=== PATIENT | male | born 1965 | race Caucasian/White ===

== ENCOUNTER 2022-09-23 13:36 | Inpatient (IN) ==
[2022-09-23] MEDS ORDERED: IOPAMIDOL 100 ML BOTTLE IV ONE (13:37)
[2022-09-23 14:18] LABS: POC Calcium, Ionized 1.11 (1.16-1.32); POC Creatinine 1.1 (0.6-1.2); POC Potassium 3.9 (3.3-5.1)
--- NOTE | 2022-09-23 14:32 | Emergency Department Note ---
HPI General Chief complaint: Abdominal Pain Stated complaint: Abdominal Pain Time Seen by Provider: 09/23/22 13:46 Source: patient Mode of arrival: wheelchair Limitations: no limitations History of Present Illness HPI Narrative: Narrative: This 57-year-old gentleman presents complaining of intermittent abdominal pain in the bilateral lower quadrants. He states it comes on fairly strongly the minute he eats and resolves spontaneously afterwards he cannot relate any other provocative or palliative factors. He also complains of a febrile feeling and diaphoresis he states he has had some nausea today but no vomiting denies any urinary tract symptoms. His last bowel movement was today and he states the pain was somewhat relieved by this he states this was a normal bowel movement without melena or hematochezia. Related Data Home Medications Medication Instructions Recorded Confirmed vvxlohfwu-MKX-YV-acetaminophen 30 ml PO QHS PRN Insomnia 09/23/22 09/23/22 6.25 mg-30 [id number]/15mL oral liqd ibuprofen 400 mg tablet 400 mg PO Q6H PRN Pain 09/23/22 09/23/22 Allergies Allergy/AdvReac Type Severity Reaction Status Date / Time No Known Drug Allergies Allergy Verified 09/23/22 13:55 Review of Systems ROS ROS Narrative: Narrative: All systems ED: reviewed and negative except as stated. PFS Narrative Patient History Narrative: Narrative: Medical/Surgical/Family History All Active Problems (Updated 09/23/22 @ 18:26 by Oliver Kramer MD) Diverticulitis (Acute) Acute appendicitis (Acute) Diverticulitis (Acute) Left knee sprain (Acute) Chest pain (Acute) Medical History Left knee sprain Social History Smoking Status: Never smoker Exam Narrative Narrative: Narrative: General: Alert and oriented x3 no acute distress no pain behavior. Skin: Well perfused and hydrated without exanthem. Abdomen: Decreased bowel sounds tender in the suprapubic and left lower quadrant with positive direct rebound tenderness in the right side no distention no rigidity no ascites masses or hepatosplenomegaly. General Limitations: no limitations Course Vital Signs Vital signs: Vital Signs Temperature 98 F 09/23/22 13:47 Pulse Rate 94 H 09/23/22 13:47 Respiratory Rate 16 09/23/22 13:47 Blood Pressure 129/80 09/23/22 13:47 Pulse Oximetry (%) 94 09/23/22 13:47 Oxygen Delivery Method Room Air 09/23/22 13:47 Temperature 98.4 F 09/24/22 04:00 Pulse Rate 90 09/24/22 04:00 Respiratory Rate 16 09/24/22 04:00 Blood Pressure 140/75 09/24/22 04:00 Pulse Oximetry (%) 96 09/24/22 04:00 Oxygen Delivery Method Room Air 09/24/22 04:00 [facility] MDM Narrative Medical decision making narrative: Narrative: Patient's white count was 16.9 thousand with a D-dimer 0.78 (PERC score is 0.0 for a 1.3% chance of PE), and his CT scan showed1. Proximal sigmoid diverticulitis. No focal abscess or free air 2. 5 mm appendicolith. Subtle periappendiceal inflammatory changes consistent with mild appendicitis 3. Multiple noncalcified pulmonary nodules. 3-[address] follow-up recommended. 4. Splenomegaly 5. Bilateral L5 spondylolysis and grade 2 L5-S[address] Felix was called and asked to see the patient - he agreed to. Sepsis Sepsis Identified: No Lab Data 09/24/22 05:15 09/24/22 05:15 Labs: Lab Results 09/23/22 09/23/22 09/23/22 Range/Units 14:13 14:31 14:31 WBC 16.9 H (4.5-11.0) K/mcL RBC 5.80 (4.63-6.08) M/mcL Hgb 15.9 (13.7-17.5) g/dL Hct 48.1 (40.1-51.0) % POC Hct 50.0 (41-55) MCV 82.9 (80.0-100.0) fL MCH 27.4 (26.0-34.0) pg MCHC 33.1 (31.0-36.0) g/dL RDW 13.1 (11.5-14.5) % Plt Count 227 (140-440) K/mcL MPV 11.8 (8.8-12.5) fL Immature Gran % (Auto) 0.6 H (0.0-0.5) % Neut % (Auto) 84.5 H (38.0-78.0) % Lymph % (Auto) 7.3 L (15.5-49.0) % [place] % (Auto) 6.6 (1.0-12.0) % Eos % (Auto) 0.7 (0.0-7.0) % Baso % (Auto) 0.3 (0.0-2.0) % Lymph # (Auto) 1.23 L (1.50-4.80) K/mcL [place] # (Auto) 1.11 H (0.10-0.90) K/mcL Eos # (Auto) 0.11 (0.00-0.70) K/mcL Baso # (Auto) 0.05 (0.00-0.30) K/mcL Immature Gran # 0.10 H (0.00-0.05) K/mcl Absolute Neutrophils 14.26 H (1.80-8.00) K/mcL POC Sodium 138 (133-145) Sodium 137 (133-145) mmol/L POC Potassium 3.9 (3.3-5.1) Potassium 3.9 (3.3-5.1) mmol/L POC Chloride 102 (96-108) Chloride 102 (96-108) mmol/L Carbon Dioxide 24 (22-30) mmol/L POC Total CO2 25.0 (22-30) Anion Gap 11.0 (8.0-16.0) POC BUN 10 (6-20) BUN 10 (6-20) mg/dL Creatinine 1.2 (0.7-1.2) mg/dL POC Creatinine 1.1 (0.6-1.2) GFR Calculation 66 Glucose 118 H (70-105) mg/dL POC Glucose 122 H (70-105) Calcium 9.0 (8.6-10.4) mg/dL POC WB Ioniz Calcium 1.11 L (1.16-1.32) Total Bilirubin 1.3 H (0.1-1.0) mg/dL AST 20 (<40) U/L ALT 28 (<40) U/L Alkaline Phosphatase 102 (39-117) U/L Total Protein 7.4 (5.9-8.4) gm/dL Albumin 4.3 (3.2-5.2) gm/dL Globulin 3.1 (2.2-3.7) gm/dL Albumin/Globulin Ratio 1.4 (1.0-2.3) Lipase 14 (7-60) U/L Discharge Plan Patient/Caregiver Discharge Instructions Pt seen by ENERGY CONSULTANT/PA only: No Clinical Impression: Diverticulitis, Acute appendicitis Patient Disposition: Still a Patient Discharge Date/Time: 09/23/22 19:10
[2022-09-23 15:08] LABS: Basophils # (Auto) 0.05 K/mcL (0.00-0.30); Basophils % (Auto) 0.3 % (0.0-2.0); Eosinophils # (Auto) 0.11 K/mcL (0.00-0.70); Eosinophils % (Auto) 0.7 % (0.0-7.0); Hematocrit 48.1 % (40.1-51.0); Hemoglobin 15.9 g/dL (13.7-17.5); Lymphocytes # (Auto) 1.23 K/mcL (1.50-4.80); Lymphocytes % (Auto) 7.3 % (15.5-49.0); Mean Cell Volume 82.9 fL (80.0-100.0); Mean Corpuscular HGB Conc 33.1 g/dL (31.0-36.0); Mean Platelet Volume 11.8 fL (8.8-12.5); Monocytes # (Auto) 1.11 K/mcL (0.10-0.90); Monocytes % (Auto) 6.6 % (1.0-12.0); Neutrophils % (Auto) 84.5 % (38.0-78.0); Platelet Count 227 K/mcL (140-440); Red Cell Distribution Width 13.1 % (11.5-14.5); WBC 16.9 K/mcL (4.5-11.0)
[2022-09-23] MEDS ORDERED: metroNIDAZOLE 500 MG/100 ML BAG IV SCH (15:30)
[2022-09-23] MEDS ORDERED: PIPERACILLIN SODIUM/TAZOBACTAM 4.5 GM in DEXTROSE 5% IN WATER 50 ML IV ONE (15:30)
[2022-09-23 15:31] LABS: ALT/SGPT 28 U/L (<40); AST/SGOT 20 U/L (<40); Albumin 4.3 gm/dL (3.2-5.2); Albumin/Globulin Ratio 1.4 (1.0-2.3); Alkaline Phosphatase 102 U/L (39-117); Bilirubin,Total 1.3 mg/dL (0.1-1.0); Blood Urea Nitrogen 10 mg/dL (6-20); Carbon Dioxide 24 mmol/L (22-30); Chloride 102 mmol/L (96-108); Globulin 3.1 gm/dL (2.2-3.7); Glomerular Filtration Rate 66; Glucose 118 mg/dL (70-105)
--- NOTE | 2022-09-23 16:00 | Cat Scan Report ---
INDICATION: pain Morales LQs COMPARISON: None. TECHNIQUE: Axial images were obtained through the abdomen and pelvis. Sagittally and coronally reformatted images. 80 mL Isovue 370 injected intravenously. Oral contrast material was administered FINDINGS: Lung bases:There are noncalcified pulmonary parenchymal nodules: - 5 mm right middle lobe, image 1 - 4 mm right middle lobe, image 5 - 7 mm right lower lobe, image 22 Fleischner Society recommendations: 3-[address] follow-up Lung bases are otherwise negative. Liver:Negative. No focal intrahepatic mass. No focal abnormality. Liver contour is smooth. No evidence for cirrhosis Gallbladder, bilary:No calcified gallstones. No gallbladder wall thickening. No dilated intra or extrahepatic bile ducts. Spleen:There is splenomegaly. Spleen measures 16 x 11 x 4 cm. Normal patent splenic and portal veins Pancreas:No pancreatic mass. No peripancreatic abnormality Adrenal glands:Negative Kidneys,ureters,bladder:No solid renal mass. No hydronephrosis. No obstructing or nonobstructing calculi. No hydroureter. No ureteral calculus. No bladder stone. No detectable bladder mass. Gastrointestinal:Prominent sigmoid diverticulosis. There is relatively severe proximal sigmoid diverticulitis. There is colonic wall thickening and extensive pericolonic inflammatory change. There is no discrete abscess. No pneumoperitoneum. No significant free intraperitoneal fluid Negative small bowel. No mechanical small bowel obstruction. No bowel wall thickening. No focal abnormality. Negative stomach and duodenum. No focal abnormality. Appendix: The appendix is abnormal. There is a 5 mm proximal appendiceal appendicolith. There is minimal periappendiceal inflammatory change. Vascular:Negative abdominal aorta. Superior mesenteric artery and celiac trunk are normal. Normal opacification of the inferior mesenteric artery Lymphatic:No retroperitoneal or mesenteric adenopathy Mesentery, peritoneum: No free intraperitoneal fluid. No mesenteric or retroperitoneal mass. No intra-abdominal abscess. Reproductive:Prostate is not significantly enlarged Musculoskeletal:Severe degenerative disc disease at L5-S1. There is bilateral L5 spondylolysis and grade 2 spondylolisthesis. No abdominal wall or inguinal hernia IMPRESSION: 1. Proximal sigmoid diverticulitis. No focal abscess or free air 2. 5 mm appendicolith. Subtle periappendiceal inflammatory change consistent with mild appendicitis 3. Multiple noncalcified pulmonary nodules. 3-[address] follow-up recommended 4. Splenomegaly 5. Bilateral L5 spondylolysis and grade 2 L5-S1 spondylolisthesis The exam was performed using radiation dose optimization techniques including, but not limited to, automated exposure control, adjustment of the mA and/or kV according to patient size and use of iterative reconstruction technique. Interpreted and Authenticated by: Austen Delcid 09/23/22
[2022-09-23] MEDS ORDERED: ONDANSETRON 4 MG/2 ML VIAL IV PRN (17:38)
--- NOTE | 2022-09-23 17:50 | General Surg History&Physical ---
HPI History of Present Illness Patient information: Note initiated : 09/23/22 at 5:45 pm Service Date, if different from initiated Date: [] Patient: Joe Calvert 57 y/o M admitted on for Abdominal Pain. Chief Complaint: [] Chief complaint: Abdominal pain History of present illness: Mr. Calvert is a 57 year old M who presents with 2 days complaint of abdominal pain, started left lower quadrant and then worked towards the midline. He has never experienced pain like this before. He has no fevers chills, he has mild nausea without emesis. He has not had prior colorectal screening. He is otherwise healthy. CT scan done in the emergency room is read as consistent with sigmoid diverticulitis without evidence of an abscess. Patient also has a white count of 16,000. Review of Systems Review of systems: All systems reviewed, negative other than above PFSH PFSH All Active Problems (Updated 09/23/22 @ 17:47 by Ladarius Felix MD) Diverticulitis (Acute) Left knee sprain (Acute) Chest pain (Acute) Medical History (Updated 09/23/22 @ 17:47 by Ladarius Felix MD) Left knee sprain Social History smoking status: Never smoker MEDS/ALLERGIES Home Medications and Allergies Home Medications Medication Instructions Recorded Confirmed Type ttgaonqnu-FXR-RT-acetaminophen 30 ml PO QHS PRN Insomnia 09/23/22 09/23/22 History 6.25 mg-30 [id number]/15mL oral liqd ibuprofen 400 mg tablet 400 mg PO Q6H PRN Pain 09/23/22 09/23/22 History Allergies Allergy/AdvReac Type Severity Reaction Status Date / Time No Known Drug Allergies Allergy Verified 09/23/22 13:55 Physical Examination Vital Signs Vital signs: Temp Pulse Resp BP Pulse Ox O2 Del Method 98 F 94 H 16 129/80 94 Room Air 09/23/22 13:47 09/23/22 13:47 09/23/22 13:47 09/23/22 13:47 09/23/22 13:47 09/23/22 13:47 General physical appearance General physical exam: well developed, well nourished and no distress Eyes Eye exam: PERRL and normal ocular movement ENT ENT exam: normal pinna, normal nares, normal mucosa, no hearing loss and no congestion Head Head exam IM: Present atraumatic and normocephalic Neck Neck exam: no masses, no bruits, trachea midline, no lymphadenopathy and no venous distension Cardiovascular Cardiovascular exam IM: Present normal rate and rhythm Respiratory Respiratory exam: normal expansion, normal respiratory effort, clear to percussion and clear to auscultation Abdomen Abdomen: Present soft, tender (Mild tender to palpation suprapubic) and bowel sounds Hernia: Present none Genitourinary Genitourinary (Male): Present normal penis with no external lesions Rectum Rectum: Present normal sphincter tone, no hemorrhoids, no tenderness, no masses and no bleeding Integumentary Integumentary: Present no rash, no growths and no abnormal pigmentation Neurologic Neurologic: Present normal coordination and normal sensation Musculoskeletal Musculoskeletal: Present normal gait and normal posture Psychiatric Psychiatric: Present oriented to time, oriented to person, oriented to place, speech is normal and memory intact Results Labs 09/23/22 14:31 09/23/22 14:31 Labs: Abnormal lab results 09/23/22 09/23/22 09/23/22 Range/Units 14:13 14:31 14:31 WBC 16.9 H (4.5-11.0) K/mcL Immature Gran % (Auto) 0.6 H (0.0-0.5) % Neut % (Auto) 84.5 H (38.0-78.0) % Lymph % (Auto) 7.3 L (15.5-49.0) % Lymph # (Auto) 1.23 L (1.50-4.80) K/mcL [place] # (Auto) 1.11 H (0.10-0.90) K/mcL Immature Gran # 0.10 H (0.00-0.05) K/mcl Absolute Neutrophils 14.26 H (1.80-8.00) K/mcL Glucose 118 H (70-105) mg/dL POC Glucose 122 H (70-105) POC WB Ioniz Calcium 1.11 L (1.16-1.32) Total Bilirubin 1.3 H (0.1-1.0) mg/dL Diabetes panel 09/23/22 Range/Units 14:31 Sodium 137 (133-145) mmol/L Potassium 3.9 (3.3-5.1) mmol/L Chloride 102 (96-108) mmol/L Carbon Dioxide 24 (22-30) mmol/L BUN 10 (6-20) mg/dL Creatinine 1.2 (0.7-1.2) mg/dL Glucose 118 H (70-105) mg/dL Calcium 9.0 (8.6-10.4) mg/dL AST 20 (<40) U/L ALT 28 (<40) U/L Alkaline Phosphatase 102 (39-117) U/L Total Protein 7.4 (5.9-8.4) gm/dL Albumin 4.3 (3.2-5.2) gm/dL Calcium panel 09/23/22 Range/Units 14:31 Calcium 9.0 (8.6-10.4) mg/dL Albumin 4.3 (3.2-5.2) gm/dL Pituitary panel 09/23/22 Range/Units 14:31 Sodium 137 (133-145) mmol/L Potassium 3.9 (3.3-5.1) mmol/L Chloride 102 (96-108) mmol/L Carbon Dioxide 24 (22-30) mmol/L BUN 10 (6-20) mg/dL Creatinine 1.2 (0.7-1.2) mg/dL Glucose 118 H (70-105) mg/dL Calcium 9.0 (8.6-10.4) mg/dL Adrenal panel 09/23/22 Range/Units 14:31 Sodium 137 (133-145) mmol/L Potassium 3.9 (3.3-5.1) mmol/L Chloride 102 (96-108) mmol/L Carbon Dioxide 24 (22-30) mmol/L BUN 10 (6-20) mg/dL Creatinine 1.2 (0.7-1.2) mg/dL Glucose 118 H (70-105) mg/dL Calcium 9.0 (8.6-10.4) mg/dL Total Bilirubin 1.3 H (0.1-1.0) mg/dL AST 20 (<40) U/L ALT 28 (<40) U/L Alkaline Phosphatase 102 (39-117) U/L Total Protein 7.4 (5.9-8.4) gm/dL Albumin 4.3 (3.2-5.2) gm/dL All other labs normal. Imaging CT scan - abdomen: image reviewed A/P Assessment and plan (1) Diverticulitis: Plan: This is a pleasant 57-year-old gentleman who presents with sigmoid diverticulitis. Long discussion with patient about treatment being in IV antibiotics, n.p.o. Plan: N.p.o., IV antibiotics. Status: Acute Time Spent With Patient Time: Total time spent is greater than 50% in coordination of care (as documented) at patient's floor/unit and/or counseling patient:
[2022-09-23] MEDS: LACTATED RINGERS 1,000 ML IV SCH (19:52)
[2022-09-23] MEDS: LEVOFLOXACIN 750 MG/150 ML BAG IV SCH (19:53)
[2022-09-23] MEDS: 0.9 % SODIUM CHLORIDE 10 ML SYRINGE IV SCH (20:50)
[2022-09-23] MEDS: HYDROmorphone 0.5 MG/0.5 ML SYRINGE IV PRN ×2 (20:50→22:44)
[2022-09-24] MEDS: metroNIDAZOLE 500 MG/100 ML BAG IV SCH ×3 (00:03→16:04)
[2022-09-24] MEDS: LACTATED RINGERS 1,000 ML IV SCH ×3 (01:58→13:08)
[2022-09-24] MEDS: HYDROmorphone 0.5 MG/0.5 ML SYRINGE IV PRN ×2 (02:26→05:10)
[2022-09-24] MEDS: 0.9 % SODIUM CHLORIDE 10 ML SYRINGE IV SCH ×3 (05:11→22:09)
[2022-09-24 06:09] LABS: Basophils # (Auto) 0.06 K/mcL (0.00-0.30); Basophils % (Auto) 0.5 % (0.0-2.0); Eosinophils # (Auto) 0.22 K/mcL (0.00-0.70); Eosinophils % (Auto) 1.8 % (0.0-7.0); Hematocrit 42.5 % (40.1-51.0); Hemoglobin 14.1 g/dL (13.7-17.5); Lymphocytes # (Auto) 1.96 K/mcL (1.50-4.80); Lymphocytes % (Auto) 15.7 % (15.5-49.0); Mean Cell Volume 83.3 fL (80.0-100.0); Mean Corpuscular HGB Conc 33.2 g/dL (31.0-36.0); Mean Platelet Volume 11.9 fL (8.8-12.5); Monocytes # (Auto) 0.97 K/mcL (0.10-0.90); Monocytes % (Auto) 7.8 % (1.0-12.0); Neutrophils % (Auto) 73.8 % (38.0-78.0); Platelet Count 202 K/mcL (140-440); Red Cell Distribution Width 13.1 % (11.5-14.5); WBC 12.5 K/mcL (4.5-11.0)
[2022-09-24 07:00] LABS: ALT/SGPT 20 U/L (<40); AST/SGOT 13 U/L (<40); Albumin 3.6 gm/dL (3.2-5.2); Albumin/Globulin Ratio 1.2 (1.0-2.3); Alkaline Phosphatase 85 U/L (39-117); Blood Urea Nitrogen 11 mg/dL (6-20); Calcium 8.5 mg/dL (8.6-10.4); Carbon Dioxide 24 mmol/L (22-30); Chloride 103 mmol/L (96-108); Globulin 2.9 gm/dL (2.2-3.7); Glomerular Filtration Rate 82; Glucose 107 mg/dL (70-105)
[2022-09-24] MEDS ORDERED: IBUPROFEN 600 MG TABLET PO PRN (10:33)
[2022-09-24] MEDS ORDERED: ACETAMINOPHEN 325 MG TABLET PO PRN (10:33)
--- NOTE | 2022-09-24 10:39 | General Surgery Progress Note ---
SUBJECTIVE Subjective Patient information: Note initiated : 09/24/22 at 10:37 am Service Date, if different from initiated Date: [] Patient: Joe Calvert 57 y/o M admitted on 09/23/22 for Abdominal Pain. Chief Complaint: [] Interval history: Hospital day #2 sigmoid diverticulitis. Patient reports pain is improved, no nausea vomiting fevers or chills. Constitutional Vitals: Vital Signs Temp Pulse Resp BP Pulse Ox O2 Del Method 101 F H 72 16 125/75 96 Room Air 09/24/22 07:32 09/24/22 07:32 09/24/22 07:32 09/24/22 07:32 09/24/22 07:32 09/24/22 07:32 Period Temp Pulse Resp BP Sys/Hickman Pulse Ox O2 Del Method O2 Flow Rate Last 24 Hr 98 F-101 F 72-94 16-18 122-140/59-80 94-99 Room Air-Room Air Intake and Output 09/23/22 09/24/22 09/24/22 19:59 03:59 11:59 Intake Total 150 1250 Output Total 800 300 Balance 150 450 -300 Weight 270 lb 270 lb Intake & Output: Intake & Output 09/23/22 09/24/22 09/24/22 19:59 03:59 11:59 Intake Total 150 1250 Output Total 800 300 Balance 150 450 -300 Weight 270 lb 270 lb Intake: IV 150 1250 Lactated Ringers 1,000 ml @ 125 1000 mls/hr IV .Q8H [facility] Rx#: [id number] Zosyn 4.5 gm In Dextrose 5% in 50 Water 50 ml @ 100 mls/hr IV ONCE ONE Rx#:[id number] Output: Void Amount 800 300 Other: Urine Appearance Clear Urine Color Dark Yellow Dark Josseline Urine Odor Strong General appearance: cooperative and no acute distress GI/Abdominal GI/Abdominal exam: Present normal bowel sounds and soft; Absent distended, rebound or tenderness A/P Assessment and plan (1) Diverticulitis: Plan: Sigmoid diverticulitis. Clear liquid diet, oral pain medication. Status: Acute Time Spent With Patient Time: Total time spent is greater than 50% in coordination of care (as documented) at patient's floor/unit and/or counseling patient:
[2022-09-24] MEDS: LEVOFLOXACIN 750 MG/150 ML BAG IV SCH (14:04)
[2022-09-24] MEDS: oxyCODONE HCL 5 MG TABLET PO PRN ×2 (16:21→22:08)
[2022-09-24] MEDS: metroNIDAZOLE 500 MG TABLET PO SCH ×2 (22:09→22:45)
[2022-09-25] MEDS: 0.9 % SODIUM CHLORIDE 10 ML SYRINGE IV SCH (04:23)
[2022-09-25] MEDS: metroNIDAZOLE 500 MG TABLET PO SCH (05:45)
[2022-09-25 06:01] LABS: Basophils # (Auto) 0.04 K/mcL (0.00-0.30); Basophils % (Auto) 0.4 % (0.0-2.0); Eosinophils # (Auto) 0.39 K/mcL (0.00-0.70); Eosinophils % (Auto) 3.9 % (0.0-7.0); Hematocrit 43.5 % (40.1-51.0); Lymphocytes # (Auto) 2.42 K/mcL (1.50-4.80); Lymphocytes % (Auto) 24.2 % (15.5-49.0); Mean Cell Volume 83.3 fL (80.0-100.0); Mean Corpuscular HGB Conc 32.2 g/dL (31.0-36.0); Mean Platelet Volume 11.6 fL (8.8-12.5); Monocytes # (Auto) 0.71 K/mcL (0.10-0.90); Monocytes % (Auto) 7.1 % (1.0-12.0); Platelet Count 219 K/mcL (140-440); RBC 5.22 M/mcL (4.63-6.08)
[2022-09-25 06:30] LABS: Blood Urea Nitrogen 12 mg/dL (6-20); Carbon Dioxide 24 mmol/L (22-30); Chloride 103 mmol/L (96-108); Glomerular Filtration Rate 94; Glucose 94 mg/dL (70-105)
--- NOTE | 2022-09-25 07:57 | Discharge Summary ---
Discharge Provider Provider IMPORTANT FOLLOW-UP INFORMATION FOR PCP: Patient information: Note initiated : 09/25/22 at 7:56 am Service Date, if different from initiated Date: [] Patient: Joe Calvert 57 y/o M admitted on 09/23/22 for Abdominal Pain. Chief Complaint: [] Date of admission: 09/23/22 19:10 Discharge date: 09/25/22 Primary care physician: Oliver Ivey Consults: 09/24/22 08:47 Consult to Physician [CONS] Routine Comment: Consulting Provider: Ladarius Felix Reason For Exam: Physician to Consult COURSE Hospital Course Hospital course: Patient admitted for sigmoid diverticulitis, was started on antibiotics and progressed without difficulty. Discharge diagnosis: Sigmoid diverticulitis Time Spent with Patient Time attestation: Total time spent providing and/or coordinating discharge services: Time spent: Less than 30 minutes Physical Examination Vital Signs Vital signs: Temp Pulse Resp BP Pulse Ox O2 Del Method 97.7 F 57 L 16 120/84 94 Room Air 09/25/22 07:43 09/25/22 07:43 09/25/22 07:43 09/25/22 07:43 09/25/22 07:43 09/25/22 07:43 Discharge Plan Patient/Caregiver Discharge Instructions Activity: increase activity as tolerated Diet: Regular Diet Instructions: Diverticulitis (GEN) Activity Restrictions/Additional Instructions: Follow-up with me in 1 to 2 weeks Prescriptions: New acetaminophen 325 mg Tablet 650 mg PO Q6HP PRN (Reason: Per Pain Protocol/Fever > 101) Qty: 90 0RF metronidazole 500 mg Tablet 500 mg PO Q8 Qty: 24 0RF levofloxacin 750 mg Tablet 750 mg PO DAILY Qty: 8 0RF Continued ibuprofen 400 mg Tablet 400 mg PO Q6H PRN (Reason: Pain) gouclilys-MZB-JR-acetaminophen 6.90-52-46-500 mg/15 mL Liquid 30 ml PO QHS PRN (Reason: Insomnia) Follow Up Plan Follow up with: Oliver Ivey DO [Primary Care Provider] - Ladarius Felix MD [Physician] - Patient Disposition: Home, Self-Care Discharge Orders: Discharge Order (Routine); Ordered 09/25/22 Ordered By: Ladarius Felix Pending Pending Pending: Resuscitation Status Resuscitate (Full Code) Diet Regular Diet Start Sun Sep 24 1710 Acetaminophen (Acetaminophen 325 Mg Tablet) 650 mg PO Q6HP PRN; Protocol PRN Reason: Per Pain Protocol/Fever > 101 Last Admin: 09/24/22 13:05 Dose: 650 mg Documented By: ERYN Hydromorphone HCl (Hydromorphone 0.5 Mg/0.5 Ml Syringe) 0.5 mg IV Q2HP PRN; Protocol PRN Reason: Per Pain Protocol Last Admin: 09/24/22 05:10 Dose: 0.5 mg Documented By: Admin: 09/24/22 02:26 Dose: 0.5 mg Documented By: Admin: 09/23/22 22:44 Dose: 0.5 mg Documented By: Admin: 09/23/22 20:50 Dose: 0.5 mg Documented By: SHIRA Metronidazole (Metronidazole 500 Mg Tablet) 500 mg PO Q8 ALFRED; Protocol Last Admin: 09/25/22 05:45 Dose: 500 mg Documented By: Admin: 09/24/22 22:45 Dose: 500 mg Documented By: AMBER Oxycodone HCl (Oxycodone Hcl 5 Mg Tablet) 5 mg PO Q4HP PRN; Protocol PRN Reason: Per Pain Protocol Last Admin: 09/24/22 22:08 Dose: 5 mg Documented By: Admin: 09/24/22 16:21 Dose: 5 mg Documented By: ERYN Sodium Chloride (0.9 % Sodium Chloride 10 Ml Syringe) 10 ml IV Q8 ALFRED Last Admin: 09/25/22 04:23 Dose: Not Given Documented By: Admin: 09/24/22 22:09 Dose: 10 ml Documented By: Admin: 09/24/22 14:04 Dose: Not Given Documented By: Admin: 09/24/22 05:11 Dose: Not Given Documented By: Admin: 09/23/22 20:50 Dose: Not Given Documented By: SHIRA Shift Summary 09/25/22 05:16 Shift Summary by Gaby Ramirez Assumed care from [facility] at 2330 Primary Diagnosis: Diverticulitis Registration Status: IP Pertinent Medical Dx/Issue(s): No home meds and no significant medical hx Diet: Regular with thins Med management (antibiotics, diuretics, BP): PO Levaquin and Flagyl Vital Signs with Trends: VSS on RA Pain management (acute vs. chronic): C/o pain and received Oxy x1 during the first half of shift; but since has refused pain meds but still reported pain. Lab/Rad (abnormal, trends): AM labs drawn, results pending; 09/24- WBC 12.5; Ca: 8.5 Neuro/Mental Status: Alert and oriented x4; pleasant and cooperative Urinary Elimination Device: urinal Urinary output greater than 30mL/hr? Yes Date of last BM: 09/24 Lines/Tubes: Refused IV Activity: Ad-lisbeth in room, no limitations Discharge Plan (needs, disposition, etc): D/c home with when medically cleared Initialized on 09/25/22 05:16 - END OF NOTE
[2022-09-25] MEDS ORDERED: LEVOFLOXACIN 750 MG TABLET PO SCH (09:00)
== END 2022-09-25 09:10 | disposition home or self-care (01) | DRG 392 ==
LOC: ED 13:36 → MEDSUR 19:10
PROVIDERS: ADMIT Surgery; ATTEND Surgery